=== PATIENT | female | born 1950 | race Caucasian/White ===

== ENCOUNTER 2016-05-26 07:20 | Day surgery (SDC) | payer MEDICAID, MEDICARE ==
[~2016-05-26] VITALS: Ht 165.1 cm; Wt 83.0 kg
[~2016-05-26 07:20] MED LIST: 0.9% Sodium Chloride 1,000 ML IV SCH; ASPI-973 PO; GLIM2TAB2 PO; METF500T4 PO; PRED15SO PO; Sodium Chloride LOK Flush 10 mL Syringe IV PRN; fentaNYL-PF 50 mCg/mL 2 mL Inj IVPUSH PRN
[2016-05-26 07:41] VITALS: BP 165/96; PULSE 83; RESP 16; O2SAT 98
[2016-05-26 08:41] VITALS: BP 148/83; PULSE 72; RESP 16; O2SAT 100
[2016-05-26 08:50] VITALS: BP 150/77; PULSE 84; RESP 16; O2SAT 99
[2016-05-26 08:55] VITALS: BP 152/91; PULSE 80; RESP 16; O2SAT 98
--- NOTE | 2016-05-26 09:27 | ENDO ---
[address] [address] ENDOSCOPY PROCEDURE PATIENT: LILA PIPER : 1950 MR#: [id number] ADMIT: 05/26/2016 JOB ID: [id number] DATE: 05/26/2016 PROCEDURE: Colonoscopy. INDICATIONS: Screening. The patient's ASA classification is 2. Mallampati score is 2. MEDICATIONS: 1. Versed 5 mg. 2. Fentanyl 100 mcg. INSTRUMENT USED: PCF H 180 AL. PREPARATION QUALITY: Was good. PROCEDURE DETAILS: After informed consent was obtained, the patient was brought into the GI suite, where she was placed on oxygen via nasal cannula and monitored with continuous pulse oximeter, telemetry and blood pressure monitoring. A time-out was performed. Then, she was placed in the left lateral decubitus position and medications were administered for sedation. Digital rectal examination was performed, which revealed moderate-sized external hemorrhoids. The colonoscope was then inserted into the rectum and advanced under direct visualization to the cecum, which was identified by the presence of the ileocecal valve and appendiceal orifice. Once the cecum was reached, the colonoscope was withdrawn back to the rectum as the mucosa and lumen were examined. In the rectum, retroflexion was performed. Following retroflexion, remaining air in the rectum was suctioned, and the procedure was completed. FINDINGS: 1. Normal appearing colon mucosa from rectum to cecum. 2. Internal and external hemorrhoids. RECOMMENDATIONS: 1. Fiber rich diet. 2. Repeat colonoscopy in 10 years, sooner if symptoms should dictate. COMPLICATIONS: None. ESTIMATED BLOOD LOSS: 0.
== END 2016-05-26 23:59 | disposition home or self-care (01) ==
LOC: END 07:20
PROVIDERS: ATTEND Internal Medicine Gastroenterology
DX: Z12.11 Encounter for screening for malignant neoplasm of colon (principal); Z83.71 Family history of colonic polyps; K64.8 Other hemorrhoids; K64.4 Residual hemorrhoidal skin tags; E11.9 Type 2 diabetes mellitus without complications; Z79.84 Long term (current) use of oral hypoglycemic drugs
CPT/HCPCS: 99153; G0105; G0500; J7030